=== PATIENT | female | born 1945 | race Caucasian/White ===

== ENCOUNTER 2024-11-10 07:08 | Day surgery (SDC) | payer OTHER, MEDICARE ==
[2024-11-04 15:38] VITALS: BMI 24.7
[2024-11-10] MEDS ORDERED: LIDOCAINE 1% P/F 10 MG/ML VIAL ONE (07:15)
[2024-11-10] MEDS ORDERED: BSS (NA/CA/MG/K) BALANCED SALT SOLUTION OPHTH SOLN 15 ML BOTTLE ONE (07:15)
[2024-11-10] MEDS ORDERED: NEO/POLYMYX B SULF/DEXAMETH OPHTHALMIC 5ML BOTTLE ONE (07:15)
[2024-11-10] MEDS ORDERED: CARBACHOL 0.01% INTRA-OCULAR 1.5 ML VIAL ONE (07:15)
[2024-11-10] MEDS ORDERED: TETRACAINE 0.5% OPHTH SOLN 2 ML BOTTLE ONE (07:15)
[2024-11-10 07:55] VITALS: RESP 16
[2024-11-10] MEDS: TROPICAMIDE 1% 3 ML EYE DROPS ONE (07:55)
[2024-11-10] MEDS: PHENYLEPHRINE 2.5% OPTHALMIC DROP 2ML BOTTLE ONE (07:55)
[2024-11-10] MEDS: CYCLOPENTOLATE 2% OPHTH SOLN 2 ML BOTTLE ONE (07:55)
[2024-11-10] MEDS: CIPROFLOXACIN 0.3% EYE DROPS 5 ML BOTTLE ONE (07:55)
[2024-11-10] MEDS ORDERED: MIDAZOLAM HCL 2 MG/2 ML SINGLE DOSE VIAL ONE (08:53)
[2024-11-10 11:34] VITALS: TEMP 97.3
[2024-11-10 11:41] VITALS: PULSE 68
[2024-11-10 11:46] VITALS: BP 112/64
== END 2024-11-10 10:20 | disposition home or self-care (01) ==
LOC: FASU 07:08
PROVIDERS: ATTEND Ophthalmology
PROC: 08RJ3JZ Replacement of Right Lens with Synthetic Substitute, Percutaneous Approach (ICD-10-PCS; principal; 2024-11-10 09:01)
DX: H26.8 Other specified cataract (principal)
CPT/HCPCS: 66984; V2632